=== PATIENT | male | born 2000 | race Two or more races ===

== ENCOUNTER 2023-10-07 13:27 | Emergency (ER) | payer OTHER ==
[~2023-10-07] VITALS: Ht 172.7 cm; Wt 87.7 kg
[2023-10-07 13:30] VITALS: TEMP 97.8
[2023-10-07] MEDS ORDERED: MELA3TAB89 PO (13:31)
[2023-10-07 14:11] LABS: BASOPHILS % (AUTO) 0.4 % (0.0-2.0); HEMATOCRIT 45.3 % (41-53); HEMOGLOBIN 15.5 g/dL (13.5-17.5); LYMPHOCYTES # (AUTO) 1.8 K/uL (1.0-4.8); LYMPHOCYTES % (AUTO) 28.8 % (22.0-44.0); MEAN CORPUSCULAR HEMOGLOBIN 31.2 pg (26.0-34.0); MEAN CORPUSCULAR HGB CONC 34.3 G/dL (31.0-37.0); MEAN CORPUSCULAR VOLUME 91 fL (80-100); MONOCYTES # (AUTO) 0.5 K/uL (0.1-1.0); MONOCYTES % (AUTO) 7.8 % (2.0-9.0); NEUTROPHILS # (AUTO) 3.8 K/uL (1.8-7.7); PLATELET COUNT (AUTO) 205 K/uL (150-450); RED BLOOD CELL COUNT(AUTO) 4.99 MIL/uL (4.50-5.90); RED CELL DISTRIBUTION WIDTH 12.7 % (11.5-14.5); WHITE BLOOD COUNT (AUTO) 6.1 K/uL (4.5-11.0)
[2023-10-07 14:35] LABS: ANION GAP 8 mmol/L (8-16); CALCIUM, TOTAL 9.1 mg/dL (8.8-10.5); CARBON DIOXIDE 27 mmol/L (22-29); CHLORIDE 102 mmol/L (98-107); CREATININE 1.19 mg/dL (0.60-1.30); GLOMERULAR FILTR. RATE CALC > 60 mL/min (>60); GLUCOSE,RANDOM 100 mg/dL (70-110); POTASSIUM 4.1 mmol/L (3.5-5.1); SODIUM SERUM 137 mmol/L (136-145); UREA NITROGEN, BLOOD 11 mg/dL (7-18)
[2023-10-07 14:40] LABS: ALANINE AMINOTRANSFERASE 47 U/L (12-78); ALBUMIN 3.8 g/dL (3.4-5.0); ALKALINE PHOSPHATASE 110 U/L (46-116); ASPARTATE AMINOTRANSFERASE 57 U/L (15-37); BILIRUBIN,TOTAL 0.3 mg/dL (0.1-1.0); LIPASE 47 U/L (16-77)
[2023-10-07] MEDS: SODIUM CHLORIDE 0.9% 2,000 ML IV ONE (15:04)
[2023-10-07] MEDS: KETOROLAC TROMETHAMINE 30 MG/ML VIAL IVP ONE (15:04)
[2023-10-07] MEDS: ONDANSETRON HCL 4 MG/2 ML VIAL IVP ONE (15:04)
[2023-10-07 17:30] VITALS: BP 121/75; PULSE 80; RESP 18
[2023-10-07] MEDS: MAG HYDROX/ALUMINUM HYD/SIMETH ES 30 ML SUSPENSION UDCUP PO ONE (17:45)
[2023-10-07] MEDS: OMEPRAZOLE 20 MG CAPSULE PO ONE (17:45)
[2023-10-07] MEDS ORDERED: OMEP20 PO (18:20)
[2023-10-07] MEDS ORDERED: ONDA-104 PO (18:20)
[2023-10-07] MEDS ORDERED: MAG30ORA11 PO (18:20)
[2023-10-07] MEDS ORDERED: HYDR30CR3 TP (18:20)
== END 2023-10-07 19:01 | disposition home or self-care (01) ==
LOC: EMS 13:37
DX: K52.9 Noninfective gastroenteritis and colitis, unspecified (principal); K64.9 Unspecified hemorrhoids
CPT/HCPCS: 99285; 96374; 76705; 96361; 96375; 80053; 83690; 85025; 36415; J1885; J2405; J7030